=== PATIENT | female | born 1985 | race Caucasian/White ===

== ENCOUNTER 2022-02-15 09:27 | Outpatient (CLI) | payer OTHER | END 2022-02-15 09:40 | disposition home or self-care (01) | LOC: RX STUDY 09:27 | DX: N94.6 Dysmenorrhea, unspecified (principal); N80.0 Endometriosis of uterus ==

== ENCOUNTER 2023-04-30 08:42 | Outpatient (CLI) | payer OTHER | END 2023-04-30 08:53 | disposition home or self-care (01) | LOC: RX STUDY 08:42 | DX: N94.6 Dysmenorrhea, unspecified (principal); E28.8 Other ovarian dysfunction; D25.9 Leiomyoma of uterus, unspecified ==